=== PATIENT | female | born 1950 | race Two or more races ===

== ENCOUNTER 2019-02-23 13:03 | Emergency (ER) | payer OTHER ==
--- NOTE | 2019-02-23 13:22 | PDOC ---
Rapid Medical Evaluation Time Seen by Provider: 02/23/19 13:12 Medical Evaluation: 02/23/19 13:12 I have performed a brief in-person evaluation of this patient. The patient presents with a chief complaint of: L foot pain and swelling s/p fall 3 days ago Pertinent physical exam findings: diffuse swelling to L foot/ankle w/ increased erythema and sig ttp to L 1st/2nd MTP joints, no open wounds, +venous stasis changes b/l I have ordered the following:xray The patient will proceed to the ED for further evaluation. Discharge Disposition - Diagnosis Foot injury Qualifiers: Encounter type: initial encounter Laterality: left Qualified Code(s): S99.922A - Unspecified injury of left foot, initial encounter - Referrals - Patient Instructions - Post Discharge Activity
[2019-02-23 13:24] VITALS: BMI 36.0
--- NOTE | 2019-02-23 14:55 | PDOC ---
History of Present Illness - General Chief Complaint: Injury Stated Complaint: LT. FOOT PAIN Time Seen by Provider: 02/23/19 13:12 History Source: Patient Exam Limitations: No Limitations - History of Present Illness Initial Comments: 02/23/19 14:54 68 yo F with a hx of psoriasis and eczema presents to the emergency department with left ankle and foot pain since yesterday. Per the patient, she states she tripped on a throw rug on Saturday at 3am. Prior to the trip, she denies antecedent symptoms including the following: fever, chills, dizziness, lightheadedness, nausea, vomiting, chest pain, SOB, and headache. Denies LOC and head trauma. She states Saturday evening it was a throbbing pain 10/10 constant without radiation, but able to walk on it. Denies knee pain. Past History - Past Medical History Allergies/Adverse Reactions: Allergies Allergy/AdvReac Type Severity Reaction Status Date / Time No Known Allergies Allergy Verified 02/23/19 13:21 COPD: No - Immunization History Immunization Up to Date: Yes - Suicide/Smoking/Psychosocial Hx Smoking History: Never smoked Information on smoking cessation initiated: No Hx Alcohol Use: No Drug/Substance Use Hx: No *Physical Exam - Vital Signs Last Vital Signs Temp Pulse Resp BP Pulse Ox 98.8 F 107 H 17 163/89 100 02/23/19 13:22 02/23/19 13:22 02/23/19 13:22 02/23/19 13:22 02/23/19 13:22 - Physical Exam General Appearance: Yes: Nourished, Appropriately Dressed. No: Apparent Distress, Intoxicated HEENT: positive: EOMI, MCKENZIE, Normal Voice, Symmetrical, Pharynx Normal, Hearing Grossly Normal. negative: Pale Conjunctivae, Scleral Icterus (R), Scleral Icterus (L), Muffled/Hoarse voice, Pharyngeal Erythema, Tonsillar Exudate, Tonsillar Erythema, Sinus Tenderness, Excessive drooling Neck: positive: Trachea midline, Supple. negative: Tender, Lymphadenopathy (R) , Lymphadenopathy (L), Tender lateral, Tender midline Respiratory/Chest: positive: Lungs Clear, Normal Breath Sounds. negative: Chest Tender, Respiratory Distress, Accessory Muscle Use, Crackles, Rales, Rhonchi, Stridor, Wheezing Cardiovascular: positive: Regular Rhythm, Regular Rate, S1, S2. negative: Systolic Murmur Gastrointestinal/Abdominal: positive: Normal Bowel Sounds, Flat, Soft. negative : Tender Lymphatic: negative: Adenopathy Musculoskeletal: positive: Other (able to flex and extend toes on left at MTP. Tender to palpation in the left MTP of 1st and 2nd toes. No tenderness to palpation in the left knee and left fibular head. ROM intract at ankle and knee. ) Integumentary: positive: Normal Color, Dry, Warm. negative: Rash, Swelling Neurologic: positive: hog dropper II-XII NML intact, Fully Oriented, Alert, Normal Mood/ Affect, Normal Response, Motor Strength 5/5 Medical Decision Making - Medical Decision Making 68 yo F with a hx of psoriasis and eczema presents to the emergency department with left ankle and foot pain since yesterday. Initial vitals: Initial Vital Signs Temp Pulse Resp BP Pulse Ox 98.8 F 107 H 17 163/89 100 02/23/19 13:22 02/23/19 13:22 02/23/19 13:22 02/23/19 13:22 02/23/19 13:22 WOrk up: ddx: rule out fracture and dislocation. foot and ankle xray ordered. xray does not show acute fracture or dislocation. Patient was given a boot cast for stability support and return precautions with a referral to orthopedics. patient was able to ambulate on her own volition. Dispo; Discharge *DC/Admit/Observation/Transfer Diagnosis at time of Disposition: Foot injury Qualifiers: Encounter type: initial encounter Laterality: left Qualified Code(s): S99.922A - Unspecified injury of left foot, initial encounter - Discharge Dispostion Disposition: HOME Decision to Admit order: No - Referrals Referrals: Sabina Estrada [Primary Care Provider] - Duy Roberts DO [Staff Physician] - - Patient Instructions Printed Discharge Instructions: How to Prevent Falls, DI for Foot Pain Additional Instructions: you were seen in the emergency department for the evaluation of your foot pain. your xray was negative. please follow up with your primary medical doctor in 1 week for follow up care. if the pain does not resolve, please see the glaucoma specialist referred to you in 1 week. please use tylenol and ibuprofen as directed on the label. please return to the emergency department if you have worsening pain or new concerning symptoms such as inability to walk , discoloration, increased swelling, and loss of motion in the foot. thank you. - Post Discharge Activity
[2019-02-23] MEDS ORDERED: ACETAMINOPHEN 325 MG TABLET (FP) PO ONE (14:59)
--- NOTE | 2019-02-23 15:17 | PDOC ---
Attending Attestation - Resident Resident Name: TuyetDinh - ED Attending Attestation I have performed the following: I have examined & evaluated the patient, The case was reviewed & discussed with the resident, I agree w/resident's findings & plan - HPI HPI: 02/23/19 15:16 68 yo F with a hx of psoriasis and eczema presents to the emergency department with left ankle and foot pain since yesterday. Per the patient, she states she tripped on a throw rug on Saturday at 3am. no prodromal sx. Denies LOC and head trauma. able to ambulate. 02/23/19 15:17 - Physicial Exam PE: 02/23/19 16:15 agree with HPI and physical per resident NAD, ambulatory, NVI, dried skin, normal color. left foot with dorsal TTP, no palp swelling or erythema or warmth. no ankle tenderness malleolar intact, soft compartments. 2+ DP pulses bilaterally ROM intact - Medical Decision Making 02/23/19 15:17 VS with initial tachy likely from pain repeat normalized after analgesia analgesia given here, able to ambulate w/o difficulty. Xray left ankle/foot - normal joint space alignment, no acute fx or dislocation. arthritic changes and degenerative bones noted. Discussed results with patient. LANDY wrap for comfort, hard sole shoe for comfort.. Rest ice and elevation. Pain control with OTC meds including motrin/ tylenol as needed every 6 hours; no narcotics needed. Ortho followup provided. WBAT. Please return to ED for increased pain, weakness, numbness/tingling, fever, or redness. 02/23/19 16:16 02/23/19 16:16 02/23/19 16:16
[2019-02-23 15:23] VITALS: BP 132/77; PULSE 85; TEMP 97.8
[2019-02-23] MEDS ORDERED: ACETAMINOPHEN 325 MG TABLET (FP) ONE (15:23)
== END 2019-02-23 17:12 | disposition home or self-care (01) ==
LOC: JER 13:03
DX: S99.822A Other specified injuries of left foot, initial encounter (principal); W18.09XA Striking against other object with subsequent fall, initial encounter; Y93.89 Activity, other specified; Y92.038 Other place in apartment as the place of occurrence of the external cause; Y99.8 Other external cause status; I87.8 Other specified disorders of veins
CPT/HCPCS: 73610-TC-LT-FY; 73630-TC-LT; 99282-25

== ENCOUNTER 2024-04-12 19:59 | Emergency (ER) | payer OTHER ==
[2024-04-12 20:05] VITALS: BP 149/88; PULSE 82; RESP 16; TEMP 98.3; BMI 31.3
[2024-04-12] MEDS ORDERED: LIDOCAINE 4% PATCH TP ONE (20:56)
[2024-04-12] MEDS ORDERED: ACETAMINOPHEN 500 MG TABLET (FP) ONE (20:57)
[2024-04-12] MEDS: ACETAMINOPHEN 500 MG TABLET (FP) PO ONE (21:32)
[2024-04-12] MEDS: LIDOCAINE 4% PATCH TP ONE (21:33)
[2024-04-12] MEDS ORDERED: LIDOCAINE PATCH REMOVAL MC SCH (22:00)
== END 2024-04-12 22:22 | disposition home or self-care (01) ==
LOC: JERFT 19:59 → JER 19:59 → JERFT 22:22
DX: S20.212A Contusion of left front wall of thorax, initial encounter (principal); W07.XXXA Fall from chair, initial encounter
CPT/HCPCS: 71101-TC-LT-FY; 99283-25

== ENCOUNTER 2024-10-14 23:36 | Inpatient (IN) | payer OTHER ==
[2024-10-15] MEDS ORDERED: MECLIZINE HCL 25 MG TABLET (FP) ONE (00:14)
[2024-10-15] MEDS ORDERED: METOCLOPRAMIDE HCL INJECTION 10 MG/2 ML VIAL ONE (00:14)
[2024-10-15] MEDS: MECLIZINE HCL 25 MG TABLET (FP) PO ONE (00:33)
[2024-10-15] MEDS: SODIUM CHLORIDE 0.9% 500 ML INFUS.BAG IV ONE ×3 (00:34→04:04)
[2024-10-15] MEDS: METOCLOPRAMIDE HCL INJECTION 10 MG/2 ML VIAL IVPB ONE (00:34)
[2024-10-15 00:38] LABS: HEMOGLOBIN 8.3 GM/dL (10.7-15.3); MCH 21.4 pg (25.7-33.7); MCHC 30.6 g/dl (32.0-36.0); MEAN CELL VOLUME 69.8 fl (80-96); MEAN PLT VOLUME 6.8 fl (7.5-11.1); PLATELET COUNT 727 10^3/uL (134-434); RBC 3.86 M/mm3 (3.60-5.2); RDW 17.7 % (11.6-15.6)
[2024-10-15 00:47] LABS: WHITE BLOOD COUNT 34.7 K/mm3 (4.0-10.0)
[2024-10-15 01:00] LABS: POTASSIUM 4.3 mmol/L (3.5-5.1)
[2024-10-15 01:02] LABS: CALCIUM 9.1 mg/dL (8.5-10.1)
[2024-10-15 01:03] LABS: BLOOD UREA NITROGEN 11.9 mg/dL (7-18); MAGNESIUM 1.4 mg/dL (1.8-2.4)
[2024-10-15 01:06] LABS: CREATININE 1.8 mg/dL (0.55-1.3)
[2024-10-15 01:07] LABS: BILIRUBIN,TOTAL 1.1 mg/dL (0.2-1); TOT PROT 8.5 g/dl (6.4-8.2)
[2024-10-15] MEDS ORDERED: MAGNESIUM SULFATE IN WATER 2 GM/50 ML IVPB IVPB ONE (01:38)
[2024-10-15] MEDS: MAGNESIUM SULF 50% (8.12 MEQ/2 ML-1 GM VIAL) IVPB ONE (01:42)
[2024-10-15] MEDS ORDERED: VANCOMYCIN 1 GM PREMIX (F) 1 GM/200 ML BAG IVPB SCH ×3 (02:00→14:00)
[2024-10-15 02:01] LABS: LACTIC ACID 3.2 mmol/L (0.4-2.0)
[2024-10-15 02:08] LABS: ANISOCYTOSIS 2+; MACROCYTOSIS 0
[2024-10-15] MEDS ORDERED: PIPERACILLIN/TAZOB 4.5 GM 4.5 GM/100 ML BAG IVPB ONE (02:15)
[2024-10-15] MEDS ORDERED: VANCOMYCIN 1 GM PREMIX (F) 1 GM/200 ML BAG ONE (02:15)
[2024-10-15] MEDS: PIPERACILLIN/TAZOB 4.5 GM 4.5 GM in DEXTROSE 5%-WATER 100 ML IVPB ONE (03:24)
[2024-10-15 03:41] LABS: EPI CELLS 10 /uL (0-25.1); HYALINE CASTS 8 /uL (0-3.1); URINE APPEARANCE TURBID; URINE BACTERIA >9,000 /uL (0-1359); URINE BILIRUBIN 1+ (NEGATIVE); URINE COLOR DK YELLOW; URINE GLUCOSE (UA) NEGATIVE (NEGATIVE); URINE KETONE TRACE (NEGATIVE); URINE LEUK ESTERASE 3+ (NEGATIVE); URINE NITRITE POSITIVE (NEGATIVE); URINE PROTEIN 2+ (NEGATIVE); URINE WBC 12787 /uL (0-25.8)
[2024-10-15] MEDS: VANCOMYCIN 1,000 MG in DEXTROSE 5%-WATER - 250 ML IVPB ONE (04:04)
[2024-10-15 04:29] LABS: LACTIC ACID 3.1 mmol/L (0.4-2.0)
[2024-10-15] MEDS ORDERED: ACETAMINOPHEN 325 MG TABLET (FP) PO PRN (04:55)
[2024-10-15 04:56] LABS: YEAST NONE SEEN (NEGATIVE)
[2024-10-15] MEDS ORDERED: PIPERACILLIN/TAZOB 4.5 GM 4.5 GM in DEXTROSE 5%-WATER 100 ML IVPB SCH ×2 (05:00→09:00)
[2024-10-15] MEDS ORDERED: ALBUTEROL SO4 2.5/IPRATROPIUM 0.5 INH SOL 3 ML VIAL.NEB. NEB PRN (05:01)
[2024-10-15] MEDS: LACTATED RINGERS SOLUTION 1,000 ML/1,000 ML INFUS.BAG IV SCH (08:00)
[2024-10-15] MEDS: ACETAMINOPHEN 1000 MG/100 ML BAG IVPB ONE (10:20)
[2024-10-15] MEDS: PIPERACILLIN/TAZOB 3.375 GM 3.375 GM in DEXTROSE 5%-WATER - 50 ML IVPB SCH ×2 (10:27→17:03)
[2024-10-15 10:30] LABS: HEMATOCRIT 24.3 % (32.4-45.2); HEMOGLOBIN 7.6 GM/dL (10.7-15.3); MCH 21.6 pg (25.7-33.7); MCHC 31.1 g/dl (32.0-36.0); MEAN CELL VOLUME 69.4 fl (80-96); PLATELET COUNT 652 10^3/uL (134-434); RDW 17.7 % (11.6-15.6)
[2024-10-15 10:38] LABS: INR 1.37 (0.83-1.09); PROTHROMBIN TIME (PATIENT) 15.6 SEC (9.7-13.0)
[2024-10-15] MEDS ORDERED: SUCCINYLCHOLINE CHLORIDE 200 MG/10 ML SYRINGE ONE (10:39)
[2024-10-15] MEDS ORDERED: ETOMIDATE 20 MG/10 ML VIAL IVPUSH ONE ×2 (10:39→10:40)
[2024-10-15 10:41] LABS: ACTIVATED PTT 27.7 SECONDS (25.2-36.5)
[2024-10-15] MEDS: MUPIROCIN 2% TOPICAL OINTMENT FOR DECOLONIZATION NS SCH (11:00)
[2024-10-15 11:26] LABS: LACTIC ACID 2.4 mmol/L (0.4-2.0)
[2024-10-15] MEDS: oxyCODONE HCL 5 MG TABLET PO PRN (11:51)
[2024-10-15] MEDS: SODIUM CHLORIDE 500 ML IV STA (14:05)
[2024-10-15 16:14] LABS: PHOSPHOROUS 2.6 mg/dL (2.5-4.9)
[2024-10-15] MEDS: ACETAMINOPHEN 325 MG TABLET (FP) PO PRN (16:55)
[2024-10-15] MEDS: VANCOMYCIN 1 GM PREMIX (F) 1 GM/200 ML BAG IVPB SCH (17:03)
[2024-10-15] MEDS: PIPERACILLIN/TAZOB 3.375 GM 50 ML IVPB SCH (17:23)
[2024-10-15] MEDS: CHLORHEXIDINE GLUCONATE 4% CLEANSER FOR DECOLONIZATION TP SCH (22:20)
[2024-10-16] MEDS ORDERED: VANCOMYCIN 1 GM PREMIX (F) 1 GM/200 ML BAG IVPB SCH (02:00)
[2024-10-16 07:56] LABS: BASO % 0.7 % (0-2.0); EOS % 1.3 % (0-4.5); HEMATOCRIT 23.2 % (32.4-45.2); LYMPH % 4.6 % (8-40); MCH 21.3 pg (25.7-33.7); MCHC 30.4 g/dl (32.0-36.0); MEAN CELL VOLUME 70.2 fl (80-96); MEAN PLT VOLUME 7.2 fl (7.5-11.1); MONO % 3.9 % (3.8-10.2); NEUT % 89.5 % (42.8-82.8); PLATELET COUNT 544 10^3/uL (134-434); RDW 17.8 % (11.6-15.6)
[2024-10-16 08:34] LABS: CALCIUM 8.4 mg/dL (8.5-10.1)
[2024-10-16 08:35] LABS: BLOOD UREA NITROGEN 13.9 mg/dL (7-18); MAGNESIUM 1.8 mg/dL (1.8-2.4)
[2024-10-16 08:38] LABS: CREATININE 1.4 mg/dL (0.55-1.3); PHOSPHOROUS 3.4 mg/dL (2.5-4.9)
[2024-10-16 08:39] LABS: BILIRUBIN,TOTAL 0.6 mg/dL (0.2-1); TOT PROT 6.6 g/dl (6.4-8.2)
[2024-10-16 08:45] LABS: ALBUMIN 1.5 g/dl (3.4-5.0)
[2024-10-16] MEDS: ONDANSETRON 4 MG/2 ML VIAL IVPUSH PRN (09:09)
[2024-10-16 09:48] LABS: ANISOCYTOSIS 0; HELMET CELLS 0; HOWELL-JOLLY BODIES 0; MACROCYTOSIS 0; OVALOCYTE 0; ROULEAU 0; SICKELED CELLS 0; TARGET CELLS 0; TEAR DROP CELLS 0; TOXIC GRANULATION 0
[2024-10-16 12:50] LABS: HIV INTERPRETATION NEGATIVE (NEGATIVE)
[2024-10-16] MEDS: guaiFENesin/D-METHORPHAN HB 10 ML UNIT-DOSE CUPS PO PRN (16:22)
[2024-10-16 20:10] LABS: HEMATOCRIT 22.1 % (32.4-45.2); MCHC 30.5 g/dl (32.0-36.0); MEAN CELL VOLUME 68.8 fl (80-96); MEAN PLT VOLUME 6.8 fl (7.5-11.1); PLATELET COUNT 545 10^3/uL (134-434); RBC 3.22 M/mm3 (3.60-5.2); RDW 17.8 % (11.6-15.6); WHITE BLOOD COUNT 16.2 K/mm3 (4.0-10.0)
[2024-10-16 20:16] LABS: HEMOGLOBIN 6.7 GM/dL (10.7-15.3)
[2024-10-16 21:23] LABS: LDH 118 U/L (84-246)
[2024-10-16 21:47] LABS: IRON SERUM 15 ug/dL (50-175); TOTAL IRON BINDING CAPACITY 118 ug/dL (250-450)
[2024-10-17 06:47] LABS: HEMATOCRIT 26.6 % (32.4-45.2); MCH 21.8 pg (25.7-33.7); MEAN CELL VOLUME 72.7 fl (80-96); MEAN PLT VOLUME 7.2 fl (7.5-11.1); PLATELET COUNT 592 10^3/uL (134-434); RBC 3.66 M/mm3 (3.60-5.2); RDW 18.1 % (11.6-15.6); WHITE BLOOD COUNT 16.4 K/mm3 (4.0-10.0)
[2024-10-17 07:11] LABS: POTASSIUM 4.5 mmol/L (3.5-5.1)
[2024-10-17 07:16] LABS: ALBUMIN 1.6 g/dl (3.4-5.0); BLOOD UREA NITROGEN 13.2 mg/dL (7-18); CALCIUM 8.5 mg/dL (8.5-10.1)
[2024-10-17 07:19] LABS: CREATININE 1.2 mg/dL (0.55-1.3)
[2024-10-17 07:20] LABS: BILIRUBIN,TOTAL 0.9 mg/dL (0.2-1); TOT PROT 6.9 g/dl (6.4-8.2)
[2024-10-17 09:04] LABS: MAGNESIUM 2.1 mg/dL (1.8-2.4)
[2024-10-17 09:08] LABS: PHOSPHOROUS 3.1 mg/dL (2.5-4.9)
[2024-10-17] MEDS: PANTOPRAZOLE SODIUM 40 MG VIAL IVPUSH SCH (13:03)
[2024-10-17] MEDS: PNEUMOC 20-VAL CONJ-DIP CRM/PF 0.5 ML SYRINGE IM ONE (14:30)
[2024-10-18] MEDS ORDERED: ONDANSETRON 4 MG/2 ML VIAL IVPUSH PRN (00:41)
[2024-10-18] MEDS ORDERED: ALBUTEROL SO4 2.5/IPRATROPIUM 0.5 INH SOL 3 ML VIAL.NEB. NEB PRN (00:41)
[2024-10-18] MEDS: PIPERACILLIN/TAZOB 3.375 GM 50 ML IVPB SCH (01:27)
[2024-10-18 09:25] LABS: INR 1.31 (0.83-1.09); PROTHROMBIN TIME (PATIENT) 14.7 SEC (9.7-13.0)
[2024-10-18 09:31] LABS: BASO % 0.3 % (0-2.0); EOS % 2.4 % (0-4.5); HEMATOCRIT 26.9 % (32.4-45.2); HEMOGLOBIN 8.5 GM/dL (10.7-15.3); LYMPH % 12.2 % (8-40); MCH 22.3 pg (25.7-33.7); MCHC 31.6 g/dl (32.0-36.0); MEAN CELL VOLUME 70.5 fl (80-96); MEAN PLT VOLUME 7.1 fl (7.5-11.1); NEUT % 81.1 % (42.8-82.8); PLATELET COUNT 616 10^3/uL (134-434); RBC 3.82 M/mm3 (3.60-5.2); RDW 18.7 % (11.6-15.6); WHITE BLOOD COUNT 14.1 K/mm3 (4.0-10.0)
[2024-10-18 09:45] LABS: POTASSIUM 3.6 mmol/L (3.5-5.1)
[2024-10-18 09:53] LABS: ALBUMIN 1.7 g/dl (3.4-5.0); CALCIUM 8.5 mg/dL (8.5-10.1)
[2024-10-18 09:54] LABS: MAGNESIUM 1.8 mg/dL (1.8-2.4)
[2024-10-18 09:57] LABS: BLOOD UREA NITROGEN 12.2 mg/dL (7-18); PHOSPHOROUS 2.9 mg/dL (2.5-4.9)
[2024-10-18 09:58] LABS: CREATININE 1.2 mg/dL (0.55-1.3)
[2024-10-18 10:00] LABS: BILIRUBIN,TOTAL 0.5 mg/dL (0.2-1)
[2024-10-18] MEDS ORDERED: MUPIROCIN 2% TOPICAL OINTMENT FOR DECOLONIZATION NS SCH (10:00)
[2024-10-18] MEDS ORDERED: CHLORHEXIDINE GLUCONATE 4% CLEANSER FOR DECOLONIZATION TP SCH (22:00)
[2024-10-19] MEDS: guaiFENesin/D-METHORPHAN HB 10 ML UNIT-DOSE CUPS PO PRN (06:26)
[2024-10-19 10:31] LABS: BASO % 0.5 % (0-2.0); EOS % 1.8 % (0-4.5); HEMATOCRIT 28.8 % (32.4-45.2); LYMPH % 11.5 % (8-40); MCHC 31.2 g/dl (32.0-36.0); MEAN CELL VOLUME 70.7 fl (80-96); MEAN PLT VOLUME 6.9 fl (7.5-11.1); MONO % 4.6 % (3.8-10.2); NEUT % 81.6 % (42.8-82.8); PLATELET COUNT 700 10^3/uL (134-434); RBC 4.08 M/mm3 (3.60-5.2); RDW 19.1 % (11.6-15.6); WHITE BLOOD COUNT 16.2 K/mm3 (4.0-10.0)
[2024-10-19 10:45] LABS: POTASSIUM 3.5 mmol/L (3.5-5.1)
[2024-10-19 10:49] LABS: CALCIUM 8.9 mg/dL (8.5-10.1)
[2024-10-19 10:50] LABS: BLOOD UREA NITROGEN 9.9 mg/dL (7-18); MAGNESIUM 1.8 mg/dL (1.8-2.4)
[2024-10-19 10:53] LABS: CREATININE 1.2 mg/dL (0.55-1.3)
[2024-10-19 11:16] LABS: ANISOCYTOSIS 1+; MACROCYTOSIS 0; OVALOCYTE 1+
[2024-10-19] MEDS: LACTOBACILLUS ACIDOPHILUS 1 TABLET PO SCH (18:04)
[2024-10-20 10:24] LABS: POTASSIUM 3.8 mmol/L (3.5-5.1)
[2024-10-20 10:25] LABS: HEMATOCRIT 28.2 % (32.4-45.2); HEMOGLOBIN 8.9 GM/dL (10.7-15.3); MCH 22.3 pg (25.7-33.7); MCHC 31.4 g/dl (32.0-36.0); MEAN CELL VOLUME 71.1 fl (80-96); RBC 3.97 M/mm3 (3.60-5.2); RDW 19.5 % (11.6-15.6)
[2024-10-20 10:32] LABS: BLOOD UREA NITROGEN 9.3 mg/dL (7-18); CALCIUM 8.9 mg/dL (8.5-10.1); WHITE BLOOD COUNT 15.3 K/mm3 (4.0-10.0)
[2024-10-20 10:33] LABS: MAGNESIUM 1.8 mg/dL (1.8-2.4)
[2024-10-20 10:36] LABS: CREATININE 1.2 mg/dL (0.55-1.3); PHOSPHOROUS 3.2 mg/dL (2.5-4.9)
[2024-10-20 11:50] LABS: ANISOCYTOSIS 0; MACROCYTOSIS 0
[2024-10-20] MEDS: HEPARIN NA (PORCINE) 5,000 UNITS/ML 1ML VIAL SQ SCH (21:50)
[2024-10-20] MEDS: oxyCODONE HCL 5 MG TABLET PO PRN (22:12)
[2024-10-21 09:44] LABS: HEMATOCRIT 27.2 % (32.4-45.2); HEMOGLOBIN 8.2 GM/dL (10.7-15.3); MCH 21.8 pg (25.7-33.7); MCHC 30.4 g/dl (32.0-36.0); MEAN CELL VOLUME 71.9 fl (80-96); MEAN PLT VOLUME 6.9 fl (7.5-11.1); PLATELET COUNT 705 10^3/uL (134-434); RBC 3.78 M/mm3 (3.60-5.2); WHITE BLOOD COUNT 17.4 K/mm3 (4.0-10.0)
[2024-10-21] MEDS: ACETAMINOPHEN 325 MG TABLET (FP) PO PRN (09:51)
[2024-10-21 10:08] LABS: POTASSIUM 3.5 mmol/L (3.5-5.1)
[2024-10-21 10:12] LABS: CALCIUM 8.7 mg/dL (8.5-10.1)
[2024-10-21 10:13] LABS: ALBUMIN 1.9 g/dl (3.4-5.0); BLOOD UREA NITROGEN 8.7 mg/dL (7-18)
[2024-10-21 10:16] LABS: CREATININE 1.2 mg/dL (0.55-1.3)
[2024-10-21 10:18] LABS: BILIRUBIN,TOTAL 0.7 mg/dL (0.2-1); TOT PROT 7.4 g/dl (6.4-8.2)
[2024-10-21] MEDS: MEROPENEM-0.9% SODIUM CHLORIDE 1 GM/50 ML BAG IVPB ONE (11:54)
[2024-10-21 16:54] VITALS: BMI 35.9
[2024-10-22 09:51] LABS: MCH 22.1 pg (25.7-33.7); MCHC 30.8 g/dl (32.0-36.0); MEAN CELL VOLUME 71.6 fl (80-96); MEAN PLT VOLUME 7.1 fl (7.5-11.1); PLATELET COUNT 721 10^3/uL (134-434); RBC 3.64 M/mm3 (3.60-5.2); RDW 19.8 % (11.6-15.6); WHITE BLOOD COUNT 19.9 K/mm3 (4.0-10.0)
[2024-10-22 10:14] LABS: POTASSIUM 3.4 mmol/L (3.5-5.1)
[2024-10-22 10:24] LABS: BLOOD UREA NITROGEN 7.8 mg/dL (7-18)
[2024-10-22 10:28] LABS: CREATININE 1.1 mg/dL (0.55-1.3)
[2024-10-22] MEDS ORDERED: MEROPENEM-0.9% SODIUM CHLORIDE 1 GM/50 ML BAG IVPB SCH (13:30)
[2024-10-22] MEDS: VANCOMYCIN PREMIX 1.5 GM 1,500 MG/300 ML BAG IVPB ONE (14:57)
[2024-10-22] MEDS: MINERAL OIL/PET HY-PHL TOPICAL OINTMENT 454 GM JAR TP SCH (14:57)
[2024-10-22] MEDS: POTASSIUM CHLORIDE ORAL LIQUID 20 MEQ/15 ML PO ONE (15:38)
[2024-10-22] MEDS: MEROPENEM-0.9% SODIUM CHLORIDE 1 GM/50 ML BAG IVPB SCH (17:04)
[2024-10-22] MEDS ORDERED: MEROPENEM 1 GM in DEXTROSE 5%-WATER 100 ML IVPB SCH (18:00)
[2024-10-22] MEDS: KETOROLAC TROMETHAMINE 15 MG/ML VIAL IVPUSH PRN (18:00)
[2024-10-22] MEDS: SODIUM CHLORIDE 1,000 ML IV SCH (18:01)
[2024-10-23] MEDS: KETOROLAC TROMETHAMINE 15 MG/ML VIAL IVPUSH ONE (09:03)
[2024-10-23 10:47] LABS: HEMATOCRIT 28.3 % (32.4-45.2); HEMOGLOBIN 8.5 GM/dL (10.7-15.3); MCH 21.6 pg (25.7-33.7); MCHC 30.2 g/dl (32.0-36.0); MEAN CELL VOLUME 71.4 fl (80-96); MEAN PLT VOLUME 7.3 fl (7.5-11.1); PLATELET COUNT 721 10^3/uL (134-434); RBC 3.95 M/mm3 (3.60-5.2); RDW 21.3 % (11.6-15.6); WHITE BLOOD COUNT 18.1 K/mm3 (4.0-10.0)
[2024-10-23 12:05] LABS: POTASSIUM 3.9 mmol/L (3.5-5.1)
[2024-10-23 12:08] LABS: CALCIUM 8.8 mg/dL (8.5-10.1)
[2024-10-23 12:12] LABS: CREATININE 1.1 mg/dL (0.55-1.3)
[2024-10-23] MEDS ORDERED: ACETAMINOPHEN 1000 MG/100 ML BAG IVPB PRN (16:00)
[2024-10-24 11:32] LABS: HEMATOCRIT 27.3 % (32.4-45.2); HEMOGLOBIN 8.4 GM/dL (10.7-15.3); MCH 22.1 pg (25.7-33.7); MCHC 30.9 g/dl (32.0-36.0); MEAN CELL VOLUME 71.6 fl (80-96); MEAN PLT VOLUME 7.1 fl (7.5-11.1); PLATELET COUNT 731 10^3/uL (134-434); RBC 3.82 M/mm3 (3.60-5.2); RDW 21.2 % (11.6-15.6); WHITE BLOOD COUNT 13.9 K/mm3 (4.0-10.0)
[2024-10-24] MEDS: ACETAMINOPHEN 325 MG TABLET (FP) PO PRN (15:03)
[2024-10-25 10:47] LABS: BASO % 0.7 % (0-2.0); EOS % 4.8 % (0-4.5); HEMATOCRIT 27.1 % (32.4-45.2); HEMOGLOBIN 8.4 GM/dL (10.7-15.3); LYMPH % 14.5 % (8-40); MCH 22.1 pg (25.7-33.7); MCHC 31.1 g/dl (32.0-36.0); MEAN CELL VOLUME 71.1 fl (80-96); MEAN PLT VOLUME 6.8 fl (7.5-11.1); MONO % 3.8 % (3.8-10.2); NEUT % 76.2 % (42.8-82.8); PLATELET COUNT 668 10^3/uL (134-434); RBC 3.81 M/mm3 (3.60-5.2); RDW 21.3 % (11.6-15.6); WHITE BLOOD COUNT 12.5 K/mm3 (4.0-10.0)
[2024-10-25 11:07] LABS: POTASSIUM 3.2 mmol/L (3.5-5.1)
[2024-10-25 11:10] LABS: CALCIUM 8.8 mg/dL (8.5-10.1)
[2024-10-25 11:11] LABS: ALBUMIN 1.8 g/dl (3.4-5.0); BLOOD UREA NITROGEN 7.3 mg/dL (7-18)
[2024-10-25 11:14] LABS: BILIRUBIN,TOTAL 0.3 mg/dL (0.2-1)
[2024-10-25 11:15] LABS: TOT PROT 7.4 g/dl (6.4-8.2)
[2024-10-25 12:45] LABS: ANISOCYTOSIS 2+; MACROCYTOSIS 0; OVALOCYTE 1+
[2024-10-26 09:33] LABS: BASO % 0.7 % (0-2.0); EOS % 4.4 % (0-4.5); HEMOGLOBIN 8.6 GM/dL (10.7-15.3); LYMPH % 14.3 % (8-40); MCH 22.3 pg (25.7-33.7); MCHC 31.7 g/dl (32.0-36.0); MEAN CELL VOLUME 70.4 fl (80-96); MEAN PLT VOLUME 6.8 fl (7.5-11.1); MONO % 2.9 % (3.8-10.2); NEUT % 77.7 % (42.8-82.8); PLATELET COUNT 677 10^3/uL (134-434); RBC 3.84 M/mm3 (3.60-5.2); RDW 22.4 % (11.6-15.6); WHITE BLOOD COUNT 13.8 K/mm3 (4.0-10.0)
[2024-10-26 10:01] LABS: POTASSIUM 3.4 mmol/L (3.5-5.1)
[2024-10-26 10:30] LABS: ALBUMIN 1.9 g/dl (3.4-5.0); BLOOD UREA NITROGEN 7.3 mg/dL (7-18); CALCIUM 8.9 mg/dL (8.5-10.1)
[2024-10-26 10:35] LABS: BILIRUBIN,TOTAL 0.4 mg/dL (0.2-1); TOT PROT 7.3 g/dl (6.4-8.2)
[2024-10-26] MEDS: POTASSIUM CHLORIDE ORAL LIQUID 20 MEQ/15 ML PO ONE (14:08)
[2024-10-26] MEDS: DOXYCYCLINE HYCLATE 100 MG CAPSULE PO SCH (17:37)
[2024-10-27 09:54] LABS: BASO % 0.9 % (0-2.0); HEMATOCRIT 27.6 % (32.4-45.2); HEMOGLOBIN 8.4 GM/dL (10.7-15.3); LYMPH % 12.7 % (8-40); MCH 21.8 pg (25.7-33.7); MCHC 30.3 g/dl (32.0-36.0); MEAN CELL VOLUME 71.7 fl (80-96); MEAN PLT VOLUME 7.1 fl (7.5-11.1); MONO % 2.9 % (3.8-10.2); NEUT % 79.5 % (42.8-82.8); PLATELET COUNT 681 10^3/uL (134-434); RBC 3.85 M/mm3 (3.60-5.2); WHITE BLOOD COUNT 13.1 K/mm3 (4.0-10.0)
[2024-10-27 10:11] LABS: POTASSIUM 3.6 mmol/L (3.5-5.1)
[2024-10-27 16:07] VITALS: BP 138/76; PULSE 80; RESP 16; TEMP 97.7
== END 2024-10-27 15:30 | disposition home or self-care (01) | DRG 720 ==
LOC: JER 23:36 → JERBED 10-15 04:37 → JICU 10-15 07:37 → J5S 10-18 00:35
PROVIDERS: ADMIT Internal Medicine Pulmonary Disease; ATTEND Internal Medicine
PROC: BT1DZZZ Fluoroscopy of Right Kidney, Ureter and Bladder (ICD-10-PCS; 2024-10-15)
PROC: 05H933Z Insertion of Infusion Device into Right Brachial Vein, Percutaneous Approach (ICD-10-PCS; 2024-10-15)
PROC: 0T768DZ Dilation of Right Ureter with Intraluminal Device, Via Natural or Artificial Opening Endoscopic (ICD-10-PCS; principal; 2024-10-15 09:00)
PROC: 30233N1 Transfusion of Nonautologous Red Blood Cells into Peripheral Vein, Percutaneous Approach (ICD-10-PCS; 2024-10-16)
DX: A41.50 Gram-negative sepsis, unspecified (principal); E87.20 Acidosis, unspecified; N17.9 Acute kidney failure, unspecified; D62 Acute posthemorrhagic anemia; E83.42 Hypomagnesemia; D50.9 Iron deficiency anemia, unspecified; J45.909 Unspecified asthma, uncomplicated; L03.114 Cellulitis of left upper limb; L40.9 Psoriasis, unspecified; N13.6 Pyonephrosis; R65.20 Severe sepsis without septic shock; E87.6 Hypokalemia; R19.7 Diarrhea, unspecified
CPT/HCPCS: 0241U-QW; 36415; 36430; 70450-TC; 71045-TC-FY; 71250-TC; 73110-TC-LT-FY; 73130-TC-LT-FY; 73218-TC-LT; 74176-TC; 76000-TC-FY; 80048; 80053; 81003; 82272; 82728; 82962; 83036; 83540; 83550; 83605; 83615; 83735; 84100; 84439; 84443; 84466; 84484; 85025; 85027; 85045; 85610; 85730; 86803; 86850; 86900; 86901; 86922; 87040; 87045; 87046; 87081; 87086; 87186; 87389; 87481; 90677; 93005; 93010; 94761; 97116-GP; 97161-GP; 99291; C2617; G0009; J0131; J1644; P9058

== ENCOUNTER 2025-04-23 05:47 | Day surgery (SDC) | payer OTHER ==
[2025-04-19 14:56] VITALS: BMI 24.5
[2025-04-23] MEDS ORDERED: DEXTROSE 5%-0.45% SALINE 1,000 ML IV SCH (08:15)
[2025-04-23] MEDS ORDERED: oxyCODONE HCL 5 MG TABLET PO PRN (08:15)
[2025-04-23] MEDS ORDERED: ONDANSETRON 4 MG/2 ML VIAL IVPUSH PRN (08:15)
[2025-04-23] MEDS ORDERED: SEVOFLURANE 250 ML BTL ONE ×2 (08:37→09:18)
[2025-04-23] MEDS ORDERED: ONDANSETRON 4 MG/2 ML VIAL ONE (08:37)
[2025-04-23] MEDS ORDERED: MIDAZOLAM HCL 2 MG/2 ML SINGLE DOSE VIAL ONE (08:37)
[2025-04-23] MEDS ORDERED: DEXAMETHASONE SOD PHOSPHATE 4 MG/1 ML VIAL ONE (08:37)
[2025-04-23] MEDS ORDERED: ceFAZolin SODIUM 1 GM VIAL ONE (08:37)
[2025-04-23] MEDS ORDERED: PROPOFOL 20 ML ONE (08:37)
[2025-04-23] MEDS: ceFAZolin 2 GRAM PREMIX BAG IVPB ONE ×2 (08:50)
[2025-04-23] MEDS: LACTATED RINGERS SOLUTION 1,000 ML IV SCH (10:08)
[2025-04-23 11:08] VITALS: RESP 18; TEMP 98
[2025-04-23 11:57] VITALS: BP 142/70; PULSE 88
== END 2025-04-23 12:14 | disposition home or self-care (01) ==
LOC: JASU-SURG 05:47
PROVIDERS: ATTEND Urology
PROC: 0TC08ZZ Extirpation of Matter from Right Kidney, Via Natural or Artificial Opening Endoscopic (ICD-10-PCS; principal; 2025-04-23 08:30)
PROC: 0T768DZ Dilation of Right Ureter with Intraluminal Device, Via Natural or Artificial Opening Endoscopic (ICD-10-PCS; 2025-04-23 08:30)
DX: N20.1 Calculus of ureter (principal); N20.0 Calculus of kidney
CPT/HCPCS: 76000-TC-FY; 94760; C1758; C2617